=== PATIENT | female | born 1995 | race Caucasian/White ===

== ENCOUNTER 2023-12-04 09:37 | Inpatient (IN) | payer BC, OTHER, SELFPAY ==
[~2023-12-04] VITALS: Ht 154.9 cm; Wt 77.5 kg
[2023-12-04] MEDS ORDERED: ALBUTEROL 90 MCG/ACT 8GM HFA INHALER INH PRN (10:25)
[2023-12-04 10:36] LABS: HEMATOCRIT 44.8 % (36.0-47.0); HEMOGLOBIN 15.4 g/dl (12.0-15.5); MEAN CORPUSCULAR HEMOGLOBIN 33.3 pg (27.0-33.0); MEAN CORPUSCULAR HGB CONC 34.4 g/dl (32.0-36.5); MEAN CORPUSCULAR VOLUME 96.8 fl (80.0-96.0); PLATELET COUNT, AUTOMATED 334 10^3/uL (150-450); RED BLOOD COUNT 4.63 10^6/uL (4.00-5.40); WHITE BLOOD COUNT 11.3 10^3/uL (4.0-10.0)
[2023-12-04 10:37] LABS: AMPHETAMINES LEVEL URINE NEGATIVE (NEGATIVE); BARBITURATES URINE NEGATIVE (NEGATIVE); BENZODIAZEPINES URINE NEGATIVE (NEGATIVE); COCAINE METABOLITE URINE NEGATIVE (NEGATIVE); METHADONE URINE NEGATIVE (NEGATIVE); OPIATES URINE NEGATIVE (NEGATIVE); PHENCYCLIDINE URINE NEGATIVE (NEGATIVE)
[2023-12-04 10:38] LABS: CANNABINOIDS URINE POSITIVE (NEGATIVE)
[2023-12-04 10:39] LABS: ETHYL ALCOHOL (ETHANOL) 0.046 % (0.000-0.010)
[2023-12-04 10:41] LABS: ALBUMIN 3.6 G/DL (3.2-5.2); ALKALINE PHOSPHATASE 82 U/L (35-104); ALT/SGPT 13 U/L (7.0-40); AST/SGOT 10 U/L (<34); BILIRUBIN,DIRECT < 0.1 MG/DL (<0.4); BILIRUBIN,TOTAL 0.2 MG/DL (0.3-1.2); BLOOD UREA NITROGEN 11 MG/DL (9-23); CALCIUM LEVEL 9.6 MG/DL (8.5-10.1); CARBON DIOXIDE LEVEL 28 MMOL/L (20-31); CHLORIDE LEVEL 108 MMOL/L (98-107); CREATININE FOR GFR 0.77 MG/DL (0.55-1.30); GLOMERULAR FILTRATION RATE > 60.0 (>60); GLUCOSE, FASTING 88 MG/DL (60-100); POTASSIUM SERUM 4.1 MMOL/L (3.5-5.1); SALICYLATE LEVEL < 3.0 MG/DL (<30); SODIUM LEVEL 142 MMOL/L (136-145)
[2023-12-04 10:43] LABS: THYROID STIMULATING HORMONE 6.745 uIU/ML (0.55-4.78)
[2023-12-04 10:55] LABS: HCG, SERUM QUALITATIVE NEGATIVE (NEGATIVE)
[2023-12-04] MEDS ORDERED: VENTAER INH (12:07)
[2023-12-04] MEDS ORDERED: HYDR-3363 PO (12:07)
[2023-12-04] MEDS ORDERED: SERT25TA21 PO (12:07)
[2023-12-04] MEDS ORDERED: SERT50TA29 PO (12:07)
[2023-12-04] MEDS ORDERED: HOME MED LIST COMPLETE! XX SCH (12:10)
[2023-12-04] MEDS ORDERED: IBUPROFEN 400MG TAB PO PRN (13:35)
[2023-12-04] MEDS ORDERED: MOM 30ML SUSPENSION UDC PO PRN (13:35)
[2023-12-04] MEDS ORDERED: MAALOX 30 ML SUSP *UDC PO PRN (13:35)
[2023-12-04] MEDS ORDERED: ACETAMINOPHEN 325 MG TAB PO PRN (13:35)
[2023-12-04 14:27] VITALS: BP 140/90
[2023-12-04] MEDS ORDERED: LORazepam 2 MG TAB PO PRN (18:40)
[2023-12-04] MEDS: THIAMINE 100 MG TAB PO SCH (20:51)
[2023-12-04] MEDS: MULTIVITAMINS/MINERALS THERAP 1 TAB PO SCH (20:51)
[2023-12-04] MEDS: FOLIC ACID 1MG TAB PO SCH (20:51)
[2023-12-04 23:00] VITALS: BP 174/87
[2023-12-05 06:38] VITALS: BP 145/66
[2023-12-05 06:43] VITALS: BP 145/66; TEMP 98.8; O2SAT 97
[2023-12-05] MEDS: SERTRALINE HCL 25 MG TABLET PO SCH (08:13)
[2023-12-05] MEDS: NICOTINE 14 MG/24 HR TRANSDERMAL TD SCH (08:14)
[2023-12-05 12:41] LABS: FREE T4 0.97 NG/DL (0.89-1.76)
[2023-12-05 12:58] LABS: HEPATITIS B SURFACE ANTIGEN NEGATIVE (NEGATIVE)
[2023-12-05 13:11] LABS: HIV 1&2 SCREEN NEGATIVE (NEGATIVE)
[2023-12-05 13:20] LABS: HEPATITIS B CORE ANTIBODY IGM NEGATIVE (NEGATIVE); HEPATITIS C VIRUS ABY INDEX 0.05 INDEX (<0.8)
[2023-12-05 14:00] VITALS: BP 135/78
[2023-12-05 15:46] VITALS: BP 136/86; TEMP 98; O2SAT 95
[2023-12-05] MEDS: diphenhydrAMINE 25MG CAP PO PRN (20:26)
[2023-12-05] MEDS: traZODone 50 MG TAB PO PRN (20:26)
[2023-12-05 20:48] LABS: GC DNA AMPLIFICATION NEGATIVE (NEGATIVE)
[2023-12-06 05:56] VITALS: BP 132/78
[2023-12-06 06:14] VITALS: BP 132/80; TEMP 98; O2SAT 99
[2023-12-06] MEDS: NICOTINE 7 MG/24 HR TRANSDERMAL TD SCH (09:34)
[2023-12-06] MEDS: FLUZONE VACCINE TRIVALENT PF(2024-25) 0.5ML SYRINGE IM.IMMUN ONE (10:57)
[2023-12-06] MEDS: FLUoxetine 10 MG CAP PO SCH (15:17)
[2023-12-06 16:27] VITALS: BP 139/81; TEMP 97.6
[2023-12-07 06:54] VITALS: BP 141/84; TEMP 97.2; O2SAT 95
[2023-12-07 16:43] VITALS: BP 126/74; TEMP 97.4
[2023-12-08 14:38] VITALS: BP 144/92; TEMP 97.7; O2SAT 96
[2023-12-09 06:13] VITALS: BP 136/90; TEMP 97.1; O2SAT 98
[2023-12-09 08:00] VITALS: BP 136/90
[2023-12-09] MEDS: FLUoxetine 10 MG CAP PO ONE (14:26)
[2023-12-09 14:48] VITALS: BP 124/90; TEMP 98.2; O2SAT 97
[2023-12-10 06:05] VITALS: BP 135/80; TEMP 96.9; O2SAT 95
[2023-12-10] MEDS ORDERED: TRAZ-252 PO (08:03)
[2023-12-10] MEDS ORDERED: FLUO-365 PO (08:03)
[2023-12-10] MEDS ORDERED: HYDR-3363 PO (08:03)
[2023-12-10] MEDS: FLUoxetine 20MG CAP PO SCH (08:15)
[2023-12-10 13:08] VITALS: BP 143/90; TEMP 97.1; O2SAT 97
== END 2023-12-10 15:39 | disposition home or self-care (01) | DRG 753 ==
LOC: M ED 09:37 → M ED INP 13:33 → M ED 13:40 → M PSY 15:01
PROVIDERS: ADMIT Psychiatry & Neurology Psychiatry; ATTEND Psychiatry & Neurology Psychiatry
DX: F32.89 Other specified depressive episodes (principal); M79.602 Pain in left arm; R45.851 Suicidal ideations; F10.90 Alcohol use, unspecified, uncomplicated; F14.90 Cocaine use, unspecified, uncomplicated; F17.210 Nicotine dependence, cigarettes, uncomplicated; Z79.899 Other long term (current) drug therapy; Z91.018 Allergy to other foods; Y04.8XXA Assault by other bodily force, initial encounter; T74.11XA Adult physical abuse, confirmed, initial encounter

== ENCOUNTER → 2024-01-24 | Outpatient (REF) | payer BC ==
[~2024-01-24] MED LIST: FLUO-365 PO; HYDR-3363 PO; SERT25TA21 PO; SERT50TA29 PO; TRAZ-252 PO; VENTAER INH
[2024-01-24 22:21] LABS: APPEARANCE, URINE CLEAR (CLEAR); BACTERIA, URINE AUTO NEGATIVE (NEGATIVE); BILIRUBIN, URINE AUTO NEGATIVE (NEGATIVE); BLOOD, URINE BLOOD NEGATIVE (NEGATIVE); COLOR, URINE YELLOW (YELLOW); GLUCOSE, URINE (UA) AUTO NEGATIVE (NEGATIVE); KETONE, URINE AUTO NEGATIVE (NEGATIVE); LEUKOCYTE ESTERASE, URINE AUTO NEGATIVE (NEGATIVE); NITRITE, URINE AUTO NEGATIVE (NEGATIVE); PROTEIN, URINE AUTO NEGATIVE (NEGATIVE); RBC, URINE AUTO 0 /HPF (0-3); SPECIFIC GRAVITY URINE AUTO 1.005 (1.002-1.035); SQUAMOUS EPITHELIAL CELL UR AU 1 /HPF (0-6); UROBILINOGEN, URINE AUTO 0.2 mg/dL (0.0-2.0); WBC, URINE AUTO 1 /HPF (0-3)
[2024-01-24 23:26] LABS: Trichomonas vaginalis (AMP) NOT DETECTED (NEGATIVE)
[2024-01-24 23:51] LABS: GC DNA AMPLIFICATION NEGATIVE (NEGATIVE)
== END ==
LOC: M LAB REF 21:46
PROVIDERS: ATTEND Physician Assistant Medical
DX: Z11.3 Encounter for screening for infections with a predominantly sexual mode of transmission (principal)

== ENCOUNTER 2024-05-14 02:40 | Inpatient (IN) | payer BC ==
[~2024-05-14] VITALS: Ht 154.9 cm; Wt 81.0 kg
[2024-05-14 03:20] LABS: HEMATOCRIT 44.6 % (36.0-47.0); HEMOGLOBIN 15.8 g/dl (12.0-15.5); MEAN CORPUSCULAR HEMOGLOBIN 34.1 pg (27.0-33.0); MEAN CORPUSCULAR HGB CONC 35.4 g/dl (32.0-36.5); MEAN CORPUSCULAR VOLUME 96.1 fl (80.0-96.0); PLATELET COUNT, AUTOMATED 233 10^3/uL (150-450); RED BLOOD COUNT 4.64 10^6/uL (4.00-5.40)
[2024-05-14 03:42] LABS: AMPHETAMINES LEVEL URINE NEGATIVE (NEGATIVE); BARBITURATES URINE NEGATIVE (NEGATIVE); BENZODIAZEPINES URINE NEGATIVE (NEGATIVE); COCAINE METABOLITE URINE NEGATIVE (NEGATIVE); METHADONE URINE NEGATIVE (NEGATIVE); OPIATES URINE NEGATIVE (NEGATIVE); PHENCYCLIDINE URINE NEGATIVE (NEGATIVE)
[2024-05-14 03:45] LABS: ETHYL ALCOHOL (ETHANOL) 0.108 % (0.000-0.010)
[2024-05-14 03:47] LABS: ALBUMIN 4.5 G/DL (3.2-5.2); ALKALINE PHOSPHATASE 53 U/L (35-104); ALT/SGPT 17 U/L (7.0-40); AST/SGOT 26 U/L (<34); BILIRUBIN,DIRECT 0.1 MG/DL (<0.4); BILIRUBIN,TOTAL 0.4 MG/DL (0.3-1.2); BLOOD UREA NITROGEN 10 MG/DL (9-23); CALCIUM LEVEL 9.5 MG/DL (8.5-10.1); CARBON DIOXIDE LEVEL 24 MMOL/L (20-31); CHLORIDE LEVEL 106 MMOL/L (98-107); CREATININE FOR GFR 0.95 MG/DL (0.55-1.30); GLOMERULAR FILTRATION RATE > 60.0 (>60); GLUCOSE, FASTING 100 MG/DL (60-100); POTASSIUM SERUM 3.9 MMOL/L (3.5-5.1); SALICYLATE LEVEL < 3.0 MG/DL (<30); SODIUM LEVEL 141 MMOL/L (136-145)
[2024-05-14 03:49] LABS: THYROID STIMULATING HORMONE 11.862 uIU/ML (0.55-4.78)
[2024-05-14 03:56] LABS: CANNABINOIDS URINE POSITIVE (NEGATIVE)
[2024-05-14 04:00] LABS: HCG, SERUM QUALITATIVE NEGATIVE (NEGATIVE)
[2024-05-14] MEDS: IPRATROPIUM 0.5MG/ALBUTEROL 2.5MG INH SOL UD 3ML NEB ONE (05:09)
[2024-05-14] MEDS: NICOTINE 7 MG/24 HR TRANSDERMAL TD ONE ×2 (05:14→18:25)
[2024-05-14] MEDS: LORazepam 2 MG TAB PO ONE (07:18)
[2024-05-14] MEDS: SYMBICORT 80/4.5MCG INHALER 6GM INH SCH (08:00)
[2024-05-14] MEDS ORDERED: ALBU2.5V10 INH (11:16)
[2024-05-14] MEDS ORDERED: TRAZ-186 PO (11:16)
[2024-05-14] MEDS ORDERED: BUDE10.22 INH (11:16)
[2024-05-14] MEDS ORDERED: HOME MED LIST COMPLETE! XX SCH (11:20)
[2024-05-14 13:20] LABS: APPEARANCE, URINE HAZY (CLEAR); BACTERIA, URINE AUTO 2+ (NEGATIVE); BILIRUBIN, URINE AUTO NEGATIVE (NEGATIVE); BLOOD, URINE BLOOD 2+ (NEGATIVE); COLOR, URINE YELLOW (YELLOW); GLUCOSE, URINE (UA) AUTO NEGATIVE (NEGATIVE); KETONE, URINE AUTO NEGATIVE (NEGATIVE); LEUKOCYTE ESTERASE, URINE AUTO NEGATIVE (NEGATIVE); MUCUS, URINE SMALL (NEGATIVE); NITRITE, URINE AUTO NEGATIVE (NEGATIVE); PROTEIN, URINE AUTO NEGATIVE (NEGATIVE); RBC, URINE AUTO 1 /HPF (0-3); SPECIFIC GRAVITY URINE AUTO 1.008 (1.002-1.035); SQUAMOUS EPITHELIAL CELL UR AU 4 /HPF (0-6); UROBILINOGEN, URINE AUTO 0.2 mg/dL (0.0-2.0); WBC, URINE AUTO 4 /HPF (0-3)
[2024-05-14] MEDS ORDERED: ALBUTEROL SULFATE 2.5MG/0.5ML INH CONCENTRATE NEB SOLN NEB PRN (13:35)
[2024-05-14] MEDS: ALBUTEROL 90 MCG/ACT 8GM HFA INHALER INH PRN (13:56)
[2024-05-14] MEDS ORDERED: NICOTINE 21MG/24HR 1 EA TRANSDERMAL TD ONE (17:05)
[2024-05-14] MEDS: traZODone 50 MG TAB PO PRN (19:48)
[2024-05-14] MEDS: SERTRALINE HCL 25 MG TABLET PO SCH (19:48)
[2024-05-15] MEDS ORDERED: OLANZapine ORAL DISINTEGRATING TAB 5MG PO PRN (16:20)
[2024-05-15] MEDS ORDERED: MOM 30ML SUSPENSION UDC PO PRN (16:20)
[2024-05-15] MEDS ORDERED: MAALOX 30 ML SUSP *UDC PO PRN (16:20)
[2024-05-15] MEDS ORDERED: IBUPROFEN 400MG TAB PO PRN (16:20)
[2024-05-15 17:30] VITALS: BP 136/88; TEMP 98; O2SAT 94
[2024-05-15] MEDS ORDERED: ALBUTEROL SULFATE 2.5MG/0.5ML INH CONCENTRATE NEB SOLN INH PRN (21:55)
[2024-05-15] MEDS: SERTRALINE HCL 25 MG TABLET PO SCH (22:23)
[2024-05-15] MEDS: SERTRALINE HCL 50 MG TAB PO SCH (22:23)
[2024-05-15] MEDS: ALBUTEROL 90 MCG/ACT 8GM HFA INHALER INH PRN (22:50)
[2024-05-15] MEDS: traZODone 50 MG TAB PO PRN (22:50)
[2024-05-16 06:33] VITALS: BP 136/77; TEMP 97.3; O2SAT 96
[2024-05-16] MEDS: SYMBICORT 80/4.5MCG INHALER 6GM INH SCH (08:56)
[2024-05-16] MEDS ORDERED: LORazepam 2 MG TAB PO PRN (12:10)
[2024-05-16 12:36] VITALS: BP 136/81; TEMP 97.6; O2SAT 95
[2024-05-16] MEDS: predniSONE 20 MG TAB PO ONE (14:15)
[2024-05-16] MEDS: THIAMINE 100 MG TAB PO SCH (14:15)
[2024-05-16] MEDS: FOLIC ACID 1MG TAB PO SCH (14:16)
[2024-05-16] MEDS: MULTIVITAMINS/MINERALS THERAP 1 TAB PO SCH (14:16)
[2024-05-16 16:01] VITALS: BP 135/74; TEMP 98.6; O2SAT 100
[2024-05-16] MEDS ORDERED: SERTRALINE HCL 25 MG TABLET PO SCH (21:00)
[2024-05-16] MEDS ORDERED: SERTRALINE HCL 50 MG TAB PO SCH (21:00)
[2024-05-17] VITALS: BP 142/78
[2024-05-17] MEDS: LEVOTHYROXINE 100MCG TABLET (0.1MG) PO SCH (06:13)
[2024-05-17 06:16] VITALS: BP 143/75; TEMP 97; O2SAT 99
[2024-05-17 07:07] LABS: FREE T4 0.85 NG/DL (0.89-1.76); THYROID STIMULATING HORMONE 1.892 uIU/ML (0.55-4.78)
[2024-05-17 07:35] VITALS: BP 134/75
[2024-05-17 07:36] VITALS: BP 134/75; TEMP 97.5; O2SAT 97
[2024-05-17] MEDS: predniSONE 20 MG TAB PO SCH (08:12)
[2024-05-17] MEDS: ALBUTEROL 90 MCG/ACT 8GM HFA INHALER INH PRN (08:12)
[2024-05-17 15:43] VITALS: BP 138/66; TEMP 97.9; O2SAT 95
[2024-05-17 15:55] VITALS: BP 138/66
[2024-05-17] MEDS: NICOTINE 7 MG/24 HR TRANSDERMAL TD SCH (18:46)
[2024-05-17] MEDS: ACETAMINOPHEN 325 MG TAB PO PRN (20:13)
[2024-05-17] MEDS ORDERED: NICOTINE 7 MG/24 HR TRANSDERMAL TD SCH (21:00)
[2024-05-18] MEDS: LEVOTHYROXINE 75MCG TABLET (0.075MG) PO SCH (06:02)
[2024-05-18 06:50] VITALS: BP 150/72; TEMP 97.8; O2SAT 95
[2024-05-18 14:43] VITALS: BP 127/87
[2024-05-18 15:01] VITALS: BP 127/87; TEMP 98.4; O2SAT 97
[2024-05-18] MEDS: MULTIVITAMINS/MINERALS THERAP 1 TAB PO SCH (17:49)
[2024-05-18] MEDS: diphenhydrAMINE 25MG CAP PO PRN (17:51)
[2024-05-19 06:26] VITALS: BP 128/92; TEMP 98.2; O2SAT 96
[2024-05-19] MEDS ORDERED: SERT50TA29 PO (09:39)
[2024-05-19] MEDS ORDERED: TRAZ-252 PO (09:39)
[2024-05-19] MEDS ORDERED: OLAN5ZYD PO (09:39)
[2024-05-19] MEDS ORDERED: VENTAER INH (09:39)
[2024-05-19] MEDS ORDERED: LEVO75TA4 PO (09:39)
[2024-05-19] MEDS ORDERED: DIPH-435 PO (09:39)
[2024-05-19] MEDS ORDERED: SERT25TA21 PO (09:39)
[2024-05-19] MEDS ORDERED: PRED20TA PO (09:45)
[2024-05-22] MEDS ORDERED: PRED20TA PO (16:00)
[2024-05-22] MEDS ORDERED: OLAN5ZYD PO (16:00)
[2024-05-22] MEDS ORDERED: BENA25CA4 PO (16:00)
[2024-05-22] MEDS ORDERED: ALBU8.5H INH (16:00)
[2024-05-22] MEDS ORDERED: SERT25TA85 PO (16:00)
[2024-05-22] MEDS ORDERED: TRAZ-252 PO (16:00)
[2024-05-22] MEDS ORDERED: LEVO75TA4 PO (16:00)
== END 2024-05-19 11:09 | disposition home or self-care (01) | DRG 881 ==
LOC: M ED 02:40 → M ED INP 05-15 15:47 → M PSY 05-15 17:30
PROVIDERS: ADMIT Psychiatry & Neurology Psychiatry; ATTEND Psychiatry & Neurology Psychiatry
DX: F32.9 Major depressive disorder, single episode, unspecified (principal); R45.851 Suicidal ideations; F41.1 Generalized anxiety disorder; F10.20 Alcohol dependence, uncomplicated; F14.90 Cocaine use, unspecified, uncomplicated; Z91.018 Allergy to other foods; Z79.899 Other long term (current) drug therapy; J45.909 Unspecified asthma, uncomplicated; M54.59 Other low back pain; F17.200 Nicotine dependence, unspecified, uncomplicated; E07.89 Other specified disorders of thyroid

== ENCOUNTER 2024-09-10 12:44 | Emergency (ER) | payer BC ==
[~2024-09-10] VITALS: Ht 154.9 cm; Wt 86.3 kg
[~2024-09-10 12:44] MED LIST changes: +ALBU2.5V10 INH; +ALBU8.5H INH; +BENA25CA4 PO; +BUDE10.22 INH; +DIPH-435 PO; +LEVO75TA4 PO; +OLAN5ZYD PO; +PRED20TA PO; +SERT25TA85 PO; +TRAZ-186 PO
[2024-09-10] MEDS: IPRATROPIUM 0.5 MG/ALBUTEROL 2.5 MG INH SOL UD 3 ML NEB ONE (14:07)
[2024-09-10] MEDS ORDERED: ALBU2.5V10 NEB (14:26)
[2024-09-10] MEDS ORDERED: NEBU1EAC78 MC (14:26)
[2024-09-10] MEDS ORDERED: BENZ200C70 PO (14:26)
[2024-09-10 14:34] VITALS: BP 133/84; TEMP 97.3; O2SAT 96
== END 2024-09-10 14:35 | disposition home or self-care (01) ==
LOC: M ED 12:44
DX: J06.9 Acute upper respiratory infection, unspecified (principal); J45.909 Unspecified asthma, uncomplicated

== ENCOUNTER 2024-10-16 22:40 | Emergency (ER) | payer BC ==
[~2024-10-16] VITALS: Ht 157.5 cm; Wt 95.0 kg
[~2024-10-16 22:40] MED LIST changes: +ALBU2.5V10 NEB; +BENZ200C70 PO; +NEBU1EAC78 MC
[2024-10-16 22:45] VITALS: TEMP 98.2
[2024-10-16 23:11] LABS: PLATELET COUNT, AUTOMATED 219 10^3/uL (150-450)
[2024-10-16 23:35] LABS: ALT/SGPT 13 U/L (7.0-40); AST/SGOT 18 U/L (<34); CALCIUM LEVEL 9.6 MG/DL (8.5-10.1); CARBON DIOXIDE LEVEL 21 MMOL/L (20-31); CHLORIDE LEVEL 109 MMOL/L (98-107); CREATININE FOR GFR 0.97 MG/DL (0.55-1.30); GLOMERULAR FILTRATION RATE 81.6 (>60); POTASSIUM SERUM 4.1 MMOL/L (3.5-5.1); SALICYLATE LEVEL < 3.0 MG/DL (<30); SODIUM LEVEL 145 MMOL/L (136-145)
[2024-10-16 23:37] LABS: ETHYL ALCOHOL (ETHANOL) 0.249 % (0.000-0.010)
[2024-10-17 01:57] LABS: HCG, SERUM QUALITATIVE NEGATIVE (NEGATIVE)
[2024-10-17 04:30] LABS: AMPHETAMINES LEVEL URINE NEGATIVE (NEGATIVE); BARBITURATES URINE NEGATIVE (NEGATIVE); BENZODIAZEPINES URINE NEGATIVE (NEGATIVE); CANNABINOIDS URINE NEGATIVE (NEGATIVE); COCAINE METABOLITE URINE NEGATIVE (NEGATIVE); METHADONE URINE NEGATIVE (NEGATIVE); OPIATES URINE NEGATIVE (NEGATIVE); PHENCYCLIDINE URINE NEGATIVE (NEGATIVE)
[2024-10-17 06:39] VITALS: BP 135/72; O2SAT 99
== END 2024-10-17 06:50 | disposition home or self-care (01) ==
LOC: M ED 22:40
DX: F11.29 Opioid dependence with unspecified opioid-induced disorder (principal); F43.0 Acute stress reaction; F32.A Depression, unspecified; F41.9 Anxiety disorder, unspecified; J45.909 Unspecified asthma, uncomplicated; E07.9 Disorder of thyroid, unspecified; F17.290 Nicotine dependence, other tobacco product, uncomplicated; F12.10 Cannabis abuse, uncomplicated; Z79.899 Other long term (current) drug therapy; Z91.018 Allergy to other foods